=== PATIENT | male | born 1995 | race African-American/Black ===

== ENCOUNTER 2022-04-21 15:10 | Emergency (ER) | payer SELFPAY ==
[2022-04-21 15:14] VITALS: BP 134/81; PULSE 93; RESP 15; TEMP 36.6; O2SAT 99
--- NOTE | 2022-04-21 15:27 | ED.GENADULT ---
HPI - General Adult General Chief complaint: Unspecified Stated complaint: painful bump on chin Time Seen by Provider: 04/21/22 15:15 History of Present Illness HPI narrative: 27-year-old male presents the emergency room for evaluation of lump on his chin for 3 days. Patient noticed a tender area of redness and swelling to the right side of his chin. Patient states he was trying to express the contents of the lump and was unable to. Patient states pain is radiating beneath his chin and has noticed 2 more lumps. Patient denies fever Related Data Allergies Allergy/AdvReac Type Severity Reaction Status Date / Time No Known Allergies Allergy Verified 04/21/22 15:16 Review of Systems Review of Systems: CONSTITUTIONAL: Denies fever, chills, or sweats. EYES: Denies visual changes, redness, or discharge. ENT: Denies rhinorrhea, congestion, sore throat, or otalgia. CARDIOVASCULAR: Denies chest pain, palpitations, or edema. RESPIRATORY: Denies cough or dyspnea. GASTROINTESTINAL: Denies abdominal pain, nausea, vomiting, or diarrhea. GENITOURINARY: Denies dysuria or hematuria. SKIN: Reports painful lump to chin MUSCULOSKELETAL: Denies back pain, joint pain, or myalgia. NEUROLOGIC: Denies headache, numbness, dizziness, or weakness. PSYCHIATRIC: Denies anxiety or depression. Exam Narrative: GENERAL: Well-appearing, well-nourished, no physical limitations, and in no acute distress. HEAD: Normocephalic, atraumatic. EYES: Conjunctivae normal, PERRLA and EOMI. NECK: Supple. No meningeal signs. Tender submental lymphadenopathy, no carotid bruits or JVD CHEST: Clear to auscultation. No respiratory distress. No wheezes rales or rhonchi. No tenderness. HEART: Regular rate and rhythm. No murmur heard. Normal peripheral pulses. SKIN: Indurated, tender, erythematous mass to the right side of chin NEURO: No focal deficits. Alert and oriented x3. MAEW. CN's II-XI intact bilaterally, normal gait PSYCH: Cooperative. Normal mood and affect. Course Vital Signs Vital signs: Vital Signs Temperature 36.6 C 04/21/22 15:14 Pulse Rate 93 04/21/22 15:14 Respiratory Rate 15 04/21/22 15:14 Blood Pressure 134/81 04/21/22 15:14 Pulse Oximetry 99 04/21/22 15:14 Oxygen Delivery Room Air 04/21/22 15:14 Temperature 36.6 C 04/21/22 15:14 Pulse Rate 93 04/21/22 15:14 Respiratory Rate 15 04/21/22 15:14 Blood Pressure 134/81 04/21/22 15:14 Pulse Oximetry 99 04/21/22 15:14 Oxygen Delivery Room Air 04/21/22 15:14 Medical Decision Making Vital Signs Vital Signs: Vital Signs Temperature 36.6 C 04/21/22 15:14 Pulse Rate 93 04/21/22 15:14 Respiratory Rate 15 04/21/22 15:14 Blood Pressure 134/81 04/21/22 15:14 Pulse Oximetry 99 04/21/22 15:14 Oxygen Delivery Room Air 04/21/22 15:14 Temperature 36.6 C 04/21/22 15:14 Pulse Rate 93 04/21/22 15:14 Respiratory Rate 15 04/21/22 15:14 Blood Pressure 134/81 04/21/22 15:14 Pulse Oximetry 99 04/21/22 15:14 Oxygen Delivery Room Air 04/21/22 15:14 Discharge Plan Discharge Clinical Impression: Abscess of face Patient Disposition: Home, Self-Care Condition: Stable Instructions: Antibiotic Form Prescriptions: New clindamycin HCl 300 mg capsule 300 mg PO Q8H 7 Days Qty: 21 0RF Follow-up/Referrals: PHYSICIAN,TERMINAL OPERATIONS SUPERVISOR [Non-Staff] - Time of Disposition: 15:32
== END 2022-04-21 15:44 | disposition home or self-care (01) ==
PROVIDERS: Emergency Provider Nurse Practitioner Family; PCP Emergency Medicine
DX: L02.01 Cutaneous abscess of face (principal)
CPT/HCPCS: 99283